=== PATIENT | female | born 1985 | race Caucasian/White ===

== ENCOUNTER 2025-04-19 12:37 | Emergency (ER) | payer OTHER, SELFPAY ==
[2025-04-19 12:45] VITALS: BP 126/52
[2025-04-19 13:43] VITALS: BMI 20.7
[2025-04-19 13:45] VITALS: BP 106/66
--- NOTE | 2025-04-19 13:45 | ED.GENMED ---
History of Present Illness
General
Chief Complaint: Breathing Problem
Source: patient
Time Seen by Provider: 04/19/25 13:24
History of Present Illness
History of Present Illness:
The patient is a 39-year-old female who presented with shortness of breath and chest tightness that started a couple of days ago. The severity of breathlessness prompted an urgent care visit earlier today, but the wait time led her to seek care in
the emergency department. The patient also reports left calf discomfort, describing it as a dull pain not exacerbated by touch or ambulation. She quotes, 'I dont know. Shoshana never felt anything like this,' reflecting her concern about the new symptoms.
The patient started taking hydroxychloroquine recently and has taken it for a couple of days before ceasing a week ago. She also mentions being on levothyroxine, which was increased months ago. There is no recent long travel, surgery, or personal
history of clotting disorders, although there is mention of high protein levels possibly associated with clotting risk, identified by a black pickler during earlier evaluations for joint pain.
The patient denies chest pain on breathing, cough, fever, vomiting, or abdominal pain. She does report recent lightheadedness and tingling in her hands. No recent changes in breathing patterns were noted, but there is speculation about anxiety
contributing to her state.
Phy Exam
Physical Exam
Physical Exam:
- Respiratory: No pain with deep inspiration, clear
- Cardiovascular: Vital signs reviewed and normal resting heart rate and oxygen saturation. no murmurs
- Musculoskeletal: No pain on palpation of the left calf and no tenderness noted.
Ext: No cyanosis
Skin: Warm, no rash
Course
Orders/Labs/Results
Orders:
Orders
04/19/25 12:38
Electrocardiogram (*1) Urgent
Reason for Study: Chest Pain
EKG- Treatment ONCE
04/19/25 13:43
Venous Doppler Lwr Ext Left [US Periph Venous LOWER Ext LT] Urgent
Comment:
Reason For Exam: pain in calf
04/19/25 13:44
Test Result ONCE
04/19/25 13:48
Complete Blood Count/With Diff Urgent
Comprehensive Metabolic Panel Urgent
D-Dimer Urgent
HCG, Serum Qualitative Screen Urgent
04/19/25 14:37
CR Chest - 2 Views Urgent
Comment:
Reason For Exam: sob
Abnormal Lab Results
04/19/25
13:48
MCH 31.7 H pg
(27.0-31.0)
Absolute Lymphs (auto) 1.1 L 10^3/uL
(1.2-3.4)
Lymphocytes % 19.0 L %
(20.5-51.1)
Chloride 108 H mmol/L
(98-107)
04/19/25 13:48
04/19/25 13:48
Vital Signs
Initial and Last Documented VS:
Initial Vital Signs
Temp Pulse Resp BP Pulse Ox
97.8 F 60 16 126/52 100
04/19/25 12:45 04/19/25 12:45 04/19/25 12:45 04/19/25 12:45 04/19/25 12:45
Last Documented Vital Signs
Temp Pulse Resp BP Pulse Ox
97.8 F 55 10 110/67 100
04/19/25 12:45 04/19/25 15:30 04/19/25 15:30 04/19/25 15:27 04/19/25 15:30
MDM/Problems Addressed
Differential Diagnosis Includes:
- Acute: Shortness of breath, chest tightness, left calf pain.
- Consider potential pulmonary embolism.
The Differential Diagnosis includes, in no particular order and is not limited to:
1. Pulmonary embolism
2. Deep vein thrombosis
3. Anxiety or panic attack
4. Musculoskeletal strain
- Conduct D-dimer test to screen for blood clots.
- Ultrasound of the left calf to rule out deep vein thrombosis.
- Consider chest X-ray if D-dimer is negative.
- Monitor and address symptoms of possible anxiety.
*Pulse Oximetry
Patient hypoxic: no
*Critical Care Note
Total Time (30-74mins, 75-104mins- exclusive of procedures): Not Applicable
Update Note
Update Note:
My independent EKG interpretation is:
- Rhythm: Sinus rhythm
- Heart rate: Normal
- Ischemic changes: None noted
04/19/25 - 15:42
Ultrasound showed no clot in the leg, and D-dimer was undetectable, indicating no clot was present. Chest X-ray was clear with no fluid accumulation, and blood work results were also normal. Considering these findings, the symptoms may be muscular
or due to a strained muscle, possibly exacerbated by anxiety or a panic attack. Advised to refrain from taking the medication until consulting with a black pickler to discuss potential side effects and confirm if the symptoms could be related to
the medication. Plan for discharge with a recommendation to follow up with a black pickler.
ED Attending Note
-
Portions of this chart may have been created with voice recognition software.� Occasional wrong word or��sound alike� substitutions may have occurred due to the inherent limitations of voice recognition software.
Discharge Plan
Departure
Patient Disposition: Home (Routine Discharge)
Date of Disposition: 04/19/25
Time of Disposition: 15:43
Patient with high blood pressure during this ER visit?: No
Discharge Problem:
Calf pain
Instructions: Shortness of Breath (Dyspnea) (DC)
Prescriptions:
No Action
prenat.vits,chad,cdw-oswa-[id number] [ Vitamin] 1 EACH tablet
1 tab PO DAILY
acetaminophen 325 MG tablet
650 mg PO Q4HPRN PRN (Reason: mild pain) 0RF
levothyroxine 75 MCG tablet
75 mcg PO DAILY@0700 0RF
ibuprofen 600 MG tablet
600 mg PO Q4HPRN PRN (Reason: moderate pain/cramps) 0RF
Referrals:
UNKNOWN - PT DOES,NOT KNOW [Unknown Provider]
Activity Restrictions/Additional Instructions:
Please return for any worsening symptoms. Please follow up with black pickler for further evaluation.
Interventions
Interventions:
*Risk Screen - Suicide Last Done: 04/19/25 12:45
*General Assessment Last Done: 04/19/25 12:45
*Neglect/Abuse Screening Last Done: 04/19/25 12:45
*ED- Fall Risk Assessment Last Done: 04/19/25 13:44
*ED COVID-19 Vaccine History Last Done: 04/19/25 13:44
ED- Cardiac Assessment Last Done: 04/19/25 13:46
ED- Pulmonary Assessment Last Done: 04/19/25 13:46
Discharge Date and Time
Print Language: NEPALI
[2025-04-19 14:05] LABS: % Basophils 1.4 % (0-2); % Eosinophils 3.9 % (0-6); % Immature Granulocytes 0.2 % (0-0.5); % Monocytes 7.7 % (1.7-9.3); % Neutrophils 67.8 % (42.2-75.2); Absolute Basophils 0.1 10^3/uL (0-0.2); Absolute Eosinophils 0.2 10^3/uL (0-0.7); Absolute Lymphocytes 1.1 10^3/uL (1.2-3.4); Absolute Monocytes 0.5 10^3/uL (0.1-0.6); Hemoglobin 13.7 g/dL (12.0-16.0); Mean Corp Hgb Conc. 34.3 g/dL (33.0-37.0); Mean Corpuscular Hgb 31.7 pg (27.0-31.0); Mean Corpuscular Volume 92.6 fL (81.0-99.0); Nucleated Red Blood Cells % 0 %; Platelet Count 208 10^3/uL (130-400); Red Blood Cell Count 4.32 10^6/uL (4.20-5.40); Red Cell Dist. Width 12.9 % (11.5-14.5); White Blood Cell Count 5.8 10^3/uL (4.8-10.8)
[2025-04-19 14:09] LABS: HCG, Serum Qualitative Screen Negative
[2025-04-19 14:17] LABS: ALT (SGPT) 14 U/L (0-35); AST (SGOT) 22 U/L (14-36); Albumin 4.6 g/dl (3.5-5.0); Alkaline Phosphatase 39 U/L (38-126); Blood Urea Nitrogen 15 mg/dl (7-17); Calcium 9.8 mg/dl (8.4-10.2); Carbon Dioxide 26 mmol/L (22-30); Chloride 108 mmol/L (98-107); Estimated Creatinine Clearance 89 ml/min; Glucose 86 mg/dl (70-99); Potassium 4.1 mmol/L (3.5-5.1); Sodium 142 mmol/L (135-145); Total Bilirubin 0.6 mg/dl (0.2-1.3); Total Protein 7.3 g/dl (6.3-8.2); eGFR > 60.00
[2025-04-19 14:23] LABS: D-Dimer < 0.27 ug/mlFEU (0.00-0.50)
[2025-04-19 14:32] VITALS: BP 106/69
[2025-04-19 15:27] VITALS: BP 110/67
== END 2025-04-19 15:56 | disposition home or self-care (01) ==
LOC: EMR 12:37
PROVIDERS: Physician Assistant; EMERGENCY PHYSICIAN Emergency Medicine; FAMILY PHYSICIAN Physician Assistant Medical
DX: R06.02 Shortness of breath (principal); R07.89 Other chest pain; M79.662 Pain in left lower leg; R42 Dizziness and giddiness; R20.2 Paresthesia of skin; Z79.890 Hormone replacement therapy; Z88.1 Allergy status to other antibiotic agents; Z88.2 Allergy status to sulfonamides; Z91.018 Allergy to other foods
CPT/HCPCS: 99285; 71046; 80053; 84703; 85025; 85379; 93005; 93971

== ENCOUNTER 2025-05-01 16:01 | Emergency (ER) | payer OTHER, SELFPAY ==
[2025-05-01 16:05] VITALS: BP 107/72
[2025-05-01 16:21] VITALS: BP 111/61
--- NOTE | 2025-05-01 16:30 | ED.GENMED ---
History of Present Illness
General
Chief Complaint: Chest Pain
Source: patient
Exam Limitations: none
Time Seen by Provider: 05/01/25 16:25
Nursing documentation reviewed up to this point in time: agreed with
History of Present Illness
History of Present Illness:
39-year-old female with history of recently diagnosed lupus presents stating at 7 AM she woke with a 'fluttering and chest discomfort and I felt short of breath.' She attempted to exercise by walking on the treadmill but had to stop and sit to
catch her breath and she felt numbness and tingling in both her arms. She said the symptoms before and was evaluated here on 04/19 for the symptoms with negative workup. She states the thing that is new today is that she also had some numbness of
her lower jaw, both sides. She states all symptoms are intermittent subsided gradually as the day wore on and by the time she got here she is asymptomatic.
When she was evaluated here on 04/19 it was thought that her symptoms could be due to the new hydroxychloroquine she started for her lupus. She has been off of this for the past 2 weeks however and still has similar symptoms. She states she has had
similar symptoms off and on since her initial visit. Her health consultant gave her prescription for Medrol 4 mg Dosepak instead of the hydroxychloroquine but she has not gotten that filled yet.
She states 2 days ago she was short of breath during her day at work with extreme fatigue. She felt much better yesterday and then this morning the above symptoms.
Past History
Past History
ED Past Medical History: Other (Lupus)
ED Past Surgical History:
Social History
Tobacco: Non-smoker
Alcohol: Occasional
Personal:
Living: with family
Employment: Employed
Review of Systems
Review of Systems
Allergies reviewed?: Yes
All Other Systems: ROS reviewed and negative except as documented in HPI and ROS
Constitutional: Denies fever or chills
Respiratory: Reports trouble breathing; Denies cough
Cardiac: Reports chest pain and palpitations; Denies diaphoresis or syncope
ABD/GI: Denies abdominal pain, nausea, vomiting or diarrhea
: Reports no symptoms
Musculoskeletal: Reports joint pain (Generalized joint pain the patient states is not too bad at this time)
Skin: Reports no symptoms
Neurological: Reports numbness (And tingling in both arms earlier today while walking on treadmill)
Phy Exam
Physical Exam
Physical Exam:
GENERAL: No acute distress. A&Ox3.
CONSTITUTIONAL: Afebrile.
EYES: clear, conjunctivae normal
ENMT: moist mucus membranes, Pharynx nl
RESPIRATORY: Regular respirations, nonlabored, lungs clear.
CARDIOVASCULAR: Regular rate and rhythm, no murmurs, no rubs.
GI: Soft, nontender, normal BS
MUSCULOSKELETAL: Moves with ease. Well perfused.
SKIN: Warm, dry, pink
PSYCH: Normal mood and affect. Well kept, interactive and appropriate
NEUROLOGIC: Awake, alert and oriented. No focal neurological deficits
Scores
Heart Score for Chest Pain Patients
STEMI patient?: Not applicable
Course
Orders/Labs/Results
Orders:
Orders
05/01/25 16:05
EKG [Electrocardiogram (*1)] Urgent
Reason for Study: Shortness of Breath
05/01/25 16:06
EKG- Treatment ONCE
05/01/25 17:06
Complete Blood Count/With Diff Urgent
Comprehensive Metabolic Panel Urgent
Troponin I Urgent
Abnormal Lab Results
05/01/25
17:06
MCH 31.9 H pg
(27.0-31.0)
Absolute Monos (auto) 0.7 H 10^3/uL
(0.1-0.6)
Monocytes % 9.8 H %
(1.7-9.3)
Chloride 109 H mmol/L
(98-107)
Alkaline Phosphatase 34 L U/L
(38-126)
05/01/25 17:06
05/01/25 17:06
Vital Signs
Initial and Last Documented VS:
Initial Vital Signs
Temp Pulse Resp BP Pulse Ox
98.1 F 84 16 107/72 97
05/01/25 16:05 05/01/25 16:05 05/01/25 16:05 05/01/25 16:05 05/01/25 16:05
Last Documented Vital Signs
Temp Pulse Resp BP Pulse Ox
98.1 F 64 17 94/67 99
05/01/25 16:05 05/01/25 18:00 05/01/25 18:00 05/01/25 18:00 05/01/25 18:00
MDM/Problems Addressed
Differential Diagnosis Includes:
Musculoskeletal chest pain, MVP, anxiety
MDM/Problems Addressed:
39-year-old female with history of recently diagnosed lupus presents stating at 7 AM she woke with a 'fluttering and chest discomfort and I felt short of breath.' She attempted to exercise by walking on the treadmill but had to stop and sit to
catch her breath and she felt numbness and tingling in both her arms. She said the symptoms before and was evaluated here on 04/19 for the symptoms with negative workup. She states the thing that is new today is that she also had some numbness of
her lower jaw, both sides. She states all symptoms are intermittent subsided gradually as the day wore on and by the time she got here she is asymptomatic.
When she was evaluated here on 04/19 it was thought that her symptoms could be due to the new hydroxychloroquine she started for her lupus. She has been off of this for the past 2 weeks however and still has similar symptoms. She states she has had
similar symptoms off and on since her initial visit. Her health consultant gave her prescription for Medrol 4 mg Dosepak instead of the hydroxychloroquine but she has not gotten that filled yet.
She states 2 days ago she was short of breath during her day at work with extreme fatigue. She felt much better yesterday and then this morning the above symptoms.
5:45 PM:
CBC, CMP normal
troponin within normal limits
Patient reassured, referred to the cardiac hotline for atypical chest pain and she expresses much relief at the fact that she will be following up with cardiology sooner rather than later.
Patient was hold off on taking her Medrol Dosepak until after she speaks with a service secretary. This is reasonable as she states her pain is minimal at this time.
*Pulse Oximetry
SaO2: 97
Oxygen Mode of Delivery: Room air
Patient hypoxic: no
*Critical Care Note
Total Time (30-74mins, 75-104mins- exclusive of procedures): Not Applicable
ED Attending Note
-
Portions of this chart may have been created with voice recognition software.� Occasional wrong word or��sound alike� substitutions may have occurred due to the inherent limitations of voice recognition software.
Discharge Plan
Departure
Patient Disposition: Home (Routine Discharge)
Date of Disposition: 05/01/25
Time of Disposition: 17:42
Patient with high blood pressure during this ER visit?: No
Condition: Good
Discharge Problem:
Atypical chest pain
Instructions: Chest Pain That Is Not Caused by the Heart (DC), Chest Pain DCA Follow Up
Prescriptions:
No Action
prenat.vits,chad,yjy-bzma-oswgt [ Vitamin] 1 EACH tablet
1 tab PO DAILY
acetaminophen 325 MG tablet
650 mg PO Q4HPRN PRN (Reason: mild pain) 0RF
levothyroxine 75 MCG tablet
75 mcg PO DAILY@0700 0RF
ibuprofen 600 MG tablet
600 mg PO Q4HPRN PRN (Reason: moderate pain/cramps) 0RF
Referrals:
Jasmyn Lopez PA-C [Family Provider, Family Practice]
Ophelia Ariza DO [Active, Cardiology] - Next open appointment
Activity Restrictions/Additional Instructions:
As we discussed, your workup here today shows nothing worrisome.
You should expect a call from the cardiology group within the next 2 or 3 days to set up an appointment for a more thorough cardiac evaluation
Interventions
Interventions:
*Risk Screen - Suicide Last Done: 05/01/25 16:05
*General Assessment Last Done: 05/01/25 16:05
*Neglect/Abuse Screening Last Done: 05/01/25 16:05
*ED- Fall Risk Assessment Last Done: 05/01/25 17:24
*ED COVID-19 Vaccine History Last Done: 05/01/25 17:24
*Nursing Disposition Last Done: 05/01/25 18:09
ED- Cardiac Assessment Last Done: 05/01/25 17:24
Discharge Date and Time
Discharge Date/Time: 05/01/25 18:12
Print Language: ARABIC
[2025-05-01 16:56] VITALS: BMI 21.7
[2025-05-01 17:12] LABS: % Basophils 1.4 % (0-2); % Eosinophils 5.5 % (0-6); % Immature Granulocytes 0.3 % (0-0.5); % Monocytes 9.8 % (1.7-9.3); Absolute Basophils 0.1 10^3/uL (0-0.2); Absolute Eosinophils 0.4 10^3/uL (0-0.7); Absolute Lymphocytes 1.8 10^3/uL (1.2-3.4); Absolute Monocytes 0.7 10^3/uL (0.1-0.6); Absolute Neutrophils 4.3 10^3/uL (1.4-6.5); Hematocrit 39.4 % (37.0-47.0); Hemoglobin 13.8 g/dL (12.0-16.0); Mean Corpuscular Hgb 31.9 pg (27.0-31.0); Mean Corpuscular Volume 91.2 fL (81.0-99.0); Nucleated Red Blood Cells % 0 %; Platelet Count 209 10^3/uL (130-400); Red Blood Cell Count 4.32 10^6/uL (4.20-5.40); Red Cell Dist. Width 12.4 % (11.5-14.5); White Blood Cell Count 7.3 10^3/uL (4.8-10.8)
[2025-05-01 17:30] LABS: ALT (SGPT) 17 U/L (0-35); AST (SGOT) 26 U/L (14-36); Albumin 4.6 g/dl (3.5-5.0); Alkaline Phosphatase 34 U/L (38-126); Blood Urea Nitrogen 16 mg/dl (7-17); Calcium 9.2 mg/dl (8.4-10.2); Carbon Dioxide 23 mmol/L (22-30); Chloride 109 mmol/L (98-107); Estimated Creatinine Clearance 101 ml/min; Glucose 81 mg/dl (70-99); Potassium 4.1 mmol/L (3.5-5.1); Sodium 139 mmol/L (135-145); Total Bilirubin 0.6 mg/dl (0.2-1.3); Total Protein 7.2 g/dl (6.3-8.2); eGFR > 60.00
[2025-05-01 17:39] LABS: Troponin I < 0.012 ng/ml
[2025-05-01 18:00] VITALS: BP 94/67
== END 2025-05-01 18:12 | disposition home or self-care (01) ==
LOC: EMR 16:01
PROVIDERS: Registered Nurse; EMERGENCY PHYSICIAN Emergency Medicine; FAMILY PHYSICIAN Physician Assistant Medical
DX: R07.89 Other chest pain (principal); Z79.899 Other long term (current) drug therapy
CPT/HCPCS: 99284; 80053; 84484; 85025; 93005

== ENCOUNTER 2025-05-05 12:13 | Outpatient (RCR) | payer OTHER, SELFPAY | END 2025-05-05 23:59 | disposition home or self-care (01) | LOC: RPT 12:13 | PROVIDERS: ATTENDING PHYSICIAN Obstetrics & Gynecology; FAMILY PHYSICIAN Family Medicine | DX: M62.89 Other specified disorders of muscle (principal); N39.3 Stress incontinence (female) (male); N94.12 Deep dyspareunia; Z73.6 Limitation of activities due to disability; K59.00 Constipation, unspecified; M32.9 Systemic lupus erythematosus, unspecified | CPT/HCPCS: 97163; 97530 ==

== ENCOUNTER 2025-05-29 10:07 | Outpatient (RCR) | payer OTHER, SELFPAY | END 2025-05-29 23:59 | disposition home or self-care (01) | LOC: RPT 10:07 | PROVIDERS: ATTENDING PHYSICIAN Obstetrics & Gynecology; FAMILY PHYSICIAN Family Medicine | DX: M62.89 Other specified disorders of muscle (principal); N39.3 Stress incontinence (female) (male); N94.12 Deep dyspareunia; Z73.6 Limitation of activities due to disability | CPT/HCPCS: 97112; 97140; 97530 ==

== ENCOUNTER → 2025-06-11 16:14 | Outpatient (REF) | payer OTHER, SELFPAY | LOC: WDC 16:14 | PROVIDERS: ATTENDING PHYSICIAN Obstetrics & Gynecology; FAMILY PHYSICIAN Physician Assistant Medical | DX: R42 Dizziness and giddiness (principal); R10.2 Pelvic and perineal pain; Z12.31 Encounter for screening mammogram for malignant neoplasm of breast | CPT/HCPCS: 76830; 76856; 77063; 77067; 93306 ==

== ENCOUNTER 2025-07-25 11:30 | Outpatient (RCR) | payer OTHER, SELFPAY | END 2025-07-25 23:59 | disposition home or self-care (01) | LOC: RPT 11:30 | PROVIDERS: ATTENDING PHYSICIAN Obstetrics & Gynecology; FAMILY PHYSICIAN Family Medicine | DX: M62.89 Other specified disorders of muscle (principal); N39.3 Stress incontinence (female) (male); N94.12 Deep dyspareunia; Z73.6 Limitation of activities due to disability | CPT/HCPCS: 97110; 97112; 97140; 97530 ==

== ENCOUNTER 2025-09-22 09:15 | Outpatient (RCR) | payer OTHER, SELFPAY | END 2025-09-22 23:59 | disposition home or self-care (01) | LOC: RPT 09:15 | PROVIDERS: ATTENDING PHYSICIAN Obstetrics & Gynecology; FAMILY PHYSICIAN Family Medicine | DX: M62.89 Other specified disorders of muscle (principal); N39.3 Stress incontinence (female) (male); N94.12 Deep dyspareunia; Z73.6 Limitation of activities due to disability | CPT/HCPCS: 97014; 97112; 97530 ==

== ENCOUNTER → 2025-10-15 09:13 | Outpatient (REF) | payer OTHER, SELFPAY | LOC: WDC 09:13 | PROVIDERS: ATTENDING PHYSICIAN Student in an Organized Health Care Education/Training Program | DX: N64.4 Mastodynia (principal) | CPT/HCPCS: 76642 ==